=== PATIENT | male | born 1945 | race Caucasian/White ===

== ENCOUNTER 2017-09-09 10:25 | Inpatient (IN) | payer OTHER ==
[~2017-09-09] VITALS: Ht 175.3 cm; Wt 72.6 kg
[~2017-09-09 10:25] MED LIST: AVAPRO75 MG PO; FORTAMET1000 MG PO; METOPROLOL SUCC50 MG PO; SIMVASTATIN20 MG PO
[2017-09-15] MEDS ORDERED: FAMOTIDINE20 MG PO (14:30)
[2017-09-15] MEDS ORDERED: ULTRACET PO (14:31)
== END 2017-09-15 15:15 | disposition home or self-care (01) | DRG 331 ==
LOC: SURH 11:00 → O/R 09-12 05:35 → SURH 09-12 05:35 → MEDI 09-12 13:27 → SURH 09-12 13:27
PROVIDERS: Surgery
PROC: 4A12X4Z Monitoring of Cardiac Electrical Activity, External Approach (ICD-10-PCS; 2017-09-12)
PROC: 4A033R1 Measurement of Arterial Saturation, Peripheral, Percutaneous Approach (ICD-10-PCS; 2017-09-12)
PROC: 0DTF4ZZ Resection of Right Large Intestine, Percutaneous Endoscopic Approach (ICD-10-PCS; principal; 2017-09-12 07:00)
DX: D12.2 Benign neoplasm of ascending colon (principal); I11.9 Hypertensive heart disease without heart failure; E11.9 Type 2 diabetes mellitus without complications; G47.33 Obstructive sleep apnea (adult) (pediatric); J44.9 Chronic obstructive pulmonary disease, unspecified